=== PATIENT | male | born 1950 | race Caucasian/White ===

== ENCOUNTER 2018-09-01 19:12 | Emergency (ER) | payer OTHER, MEDICARE ==
--- NOTE | 2018-09-01 21:35 | ER Document Report ---
ED Medical Screen (RME) - General Chief Complaint: Post Surgical Bleeding Stated Complaint: BACK PAIN Time Seen by Provider: 09/01/18 21:32 Primary Care Provider: JACKIE VILCHIS [Primary Care Provider] - Follow up as needed Mode of Arrival: Ambulatory Information source: Patient Notes: PT REPORTS RECENT SURGERY NOW HAS HOLE IN HIS BACK. HAD BACK FUSION SURGERY AT [facility] I have greeted and performed a rapid initial assessment of this patient. A comprehensive ED assessment and evaluation of the patient, analysis of test results and completion of the medical decision making process will be conducted by additional ED providers. TRAVEL OUTSIDE OF THE [place] IN LAST 30 DAYS: No - Related Data Allergies/Adverse Reactions: hydroxyzine [From Vistaril] Allergy (Verified 05/27/18 09:17) meperidine [From Demerol] Allergy (Verified 05/27/18 09:17) Past Medical History - Past Medical History Cardiac Medical History: Reports: Hx Hypercholesterolemia, Hx Hypertension Pulmonary Medical History: Reports: Hx COPD Renal/ Medical History: Denies: Hx Peritoneal Dialysis Past Surgical History: Reports: Other - Back surgery. - Immunizations Hx Diphtheria, Pertussis, Tetanus Vaccination: Yes Physical Exam - Vital signs Vitals: Temp Pulse Resp BP Pulse Ox 98.9 F 80 15 157/83 H 97 09/01/18 19:21 09/01/18 19:21 09/01/18 19:21 09/01/18 19:21 09/01/18 19:21 Course - Vital Signs Vital signs: Temp Pulse Resp BP Pulse Ox 98.4 F 56 L 18 145/73 H 99 09/02/18 01:09 09/02/18 01:09 09/02/18 01:09 09/02/18 01:09 09/02/18 01:09 - Laboratory Result Diagrams: 09/02/18 00:12 Laboratory results interpreted by me: 09/02/18 00:12 Hgb 13.2 L RDW 14.8 H Doctor's Discharge - Discharge Referrals: MAME,JACKIE [Primary Care Provider] - Follow up as needed
[2018-09-02] MEDS ORDERED: OXYCODONE HCL IR 5 MG TABLET PO ONE (00:14)
[2018-09-02 00:22] LABS: ABSOLUTE BASOPHILS # (AUTO) 0.1 10^3/uL (0.0-0.2); ABSOLUTE EOSINOPHILS # (AUTO) 0.2 10^3/uL (0.0-0.6); ABSOLUTE LYMPHOCYTES (AUTO) 2.6 10^3/uL (0.5-4.7); ABSOLUTE MONOCYTES (AUTO) 0.5 10^3/uL (0.1-1.4); ABSOLUTE NEUT (AUTO) 3.4 10^3/uL (1.7-8.2); BASOPHILS % (AUTO) 1.1 % (0-2); EOSINOPHILS % (AUTO) 3.3 % (0-6); HEMATOCRIT 38.4 % (37.9-51.0); HEMOGLOBIN 13.2 g/dL (13.5-17.0); LYMPHOCYTES % (AUTO) 38.4 % (13-45); MEAN CORPUSCULAR HEMOGLOBIN 28.6 pg (27.0-33.4); MEAN CORPUSCULAR HGB CONC 34.4 g/dL (32.0-36.0); MEAN CORPUSCULAR VOLUME 83 fl (80-97); MONOCYTES % (AUTO) 7.9 % (3-13); PLATELET COUNT 242 10^3/uL (150-450); RED BLOOD COUNT 4.62 10^6/uL (4.35-5.55); RED CELL DISTRIBUTION WIDTH 14.8 % (11.5-14.0); SEGMENTED NEUTROPHILS % (AUTO) 49.3 % (42-78); TOTAL CELLS COUNTED % (AUTO) 100 %; WHITE BLOOD COUNT 6.9 10^3/uL (4.0-10.5)
--- NOTE | 2018-09-02 02:29 | ER Document Report ---
ED General - General Chief Complaint: Post Surgical Bleeding Stated Complaint: BACK PAIN Time Seen by Provider: 09/01/18 21:32 Primary Care Provider: MAME,JACKIE [Primary Care Provider] - Follow up as needed Mode of Arrival: Ambulatory Notes: Patient is a 68-year-old male who presents with complaint of dehiscence of his surgical wound in his lower back. On August 07 he had lumbar fusion performed by Dr. Juarez at [facility]. Patient says that this several days ago nasal drainage coming from the wound and he had a prescription for an antibiotic called in by his surgeon. Tonight the wound dehisced and he is having a moderate amount of serosanguineous drainage from the wound. He called his neurosurgeon who told to come to the ER for evaluation. He denies any fevers. No other complaints at this time. TRAVEL OUTSIDE OF THE [place] IN LAST 30 DAYS: No - Related Data Allergies/Adverse Reactions: hydroxyzine [From Vistaril] Allergy (Verified 05/27/18 09:17) meperidine [From Demerol] Allergy (Verified 05/27/18 09:17) Past Medical History - General Information source: Patient - Social History Smoking Status: Former Smoker Chew tobacco use (# tins/day): No Frequency of alcohol use: None Drug Abuse: None Family History: Reviewed & Not Pertinent, COPD Patient has suicidal ideation: No Patient has homicidal ideation: No - Past Medical History Cardiac Medical History: Reports: Hx Hypercholesterolemia, Hx Hypertension Pulmonary Medical History: Reports: Hx COPD Renal/ Medical History: Denies: Hx Peritoneal Dialysis Past Surgical History: Reports: Hx Orthopedic Surgery - spinal fusion/rods, Other - Back surgery. - Immunizations Hx Diphtheria, Pertussis, Tetanus Vaccination: Yes Review of Systems - Review of Systems Notes: My Normal Review Basic REVIEW OF SYSTEMS: CONSTITUTIONAL : Denies fever, chills, or sweats. Denies recent illness. RESPIRATORY: Denies cough, cold, or chest congestion. Denies shortness of breath, difficulty breathing, or wheezing. GASTROINTESTINAL: Denies abdominal pain. Denies nausea, vomiting, or diarrhea. GENITOURINARY: Denies difficulty urinating, painful urination, burning, frequency, or blood in urine. MUSCULOSKELETAL: Dehisced surgical wound on lower back. SKIN: Denies rash or skin lesions. NEUROLOGICAL: Denies sensory or motor loss. ALL OTHER SYSTEMS REVIEWED AND NEGATIVE. Physical Exam - Vital signs Vitals: Temp Pulse Resp BP Pulse Ox 98.9 F 80 15 157/83 H 97 09/01/18 19:21 09/01/18 19:21 09/01/18 19:21 09/01/18 19:21 09/01/18 19:21 - Notes Notes: General Appearance: Well nourished, alert, cooperative, no acute distress, mild obvious discomfort. Vitals: reviewed, See vital signs table. Lungs: No wheezing, No rales, No rhonci, No accessory muscle use, good air exchange bilaterally. Heart: Normal rate, Regular rythm, No murmur, no rub Back: Patient surgical wound is partially dehisced. Approximately 5 cm of the wound is completely open. He can see down to the vertebral fascia. He does have serosanguineous drainage from the wound. There is not a significant amount of surrounding redness or signs of cellulitis at this time. There is no purulent drainage at this time. Extremities: Trace edema in bilateral lower extremities. Patient is able to stand with the help of his cane. He is able to bear his weight with his legs on his own power. Skin: warm, dry, appropriate color, no rash Neuro: speech clear, oriented x 3, normal affect, responds appropriately to questions. Sensation intact. Course - Re-evaluation Re-evalutation: 09/02/18 02:[address] Juarez, patient's neurosurgeon, who requested the patient be transferred to [facility] so that he can evaluate the patient to determine whether or not he needs a washout of the wound. I explained the plan to the patient he is agreeable to it. We will arrange transport. Dictation of this chart was performed using voice recognition software; therefore, there may be some unintended grammatical errors. - Vital Signs Vital signs: Temp Pulse Resp BP Pulse Ox 98.4 F 56 L 18 145/73 H 99 09/02/18 01:09 09/02/18 01:09 09/02/18 01:09 09/02/18 01:09 09/02/18 01:09 - Laboratory Result Diagrams: 09/02/18 00:12 Laboratory results interpreted by me: 09/02/18 00:12 Hgb 13.2 L RDW 14.8 H Discharge - Discharge Clinical Impression: Postoperative wound dehiscence Qualifiers: Encounter type: initial encounter Qualified Code(s): T81.31XA - Disruption of external operation (surgical) wound, not elsewhere classified, initial encounter Condition: Stable Disposition: [facility] [[facility]] - Follow up as needed
[2018-09-02 08:03] VITALS: BP 152/85
== END 2018-09-02 08:10 | disposition short-term general hospital (02) ==
LOC: ER 19:12
DX: T81.31XA Disruption of external operation (surgical) wound, not elsewhere classified, initial encounter (principal); M96.830 Postprocedural hemorrhage of a musculoskeletal structure following a musculoskeletal system procedure; X58.XXXA Exposure to other specified factors, initial encounter; Z87.891 Personal history of nicotine dependence; I10 Essential (primary) hypertension; J44.9 Chronic obstructive pulmonary disease, unspecified
CPT/HCPCS: 36415; 85025; 87070; 87075; 87077; 87186; 87205; 99283

== ENCOUNTER → 2019-02-10 | Outpatient (CLI) | payer OTHER, MEDICARE ==
--- NOTE | 2019-02-10 14:07 | RADIOLOGY REPORT (SQ) ---
EXAM DESCRIPTION: MRI LUMBAR SPINE WITHOUT COMPLETED DATE/TIME: 02/10/2019 9:36 am REASON FOR STUDY: (M54.5)LOW BACK PAIN M54.5 LOW BACK PAIN COMPARISON: None. TECHNIQUE: Sagittal and Axial imaging includes T1, T2, STIR and gradient echo sequences. Coronal T2/ HASTE imaging. LIMITATIONS: Metal artifact. Motion. FINDINGS: VISUALIZED UPPER ABDOMEN: Limited evaluation. No acute or suspicious findings suggested. SEGMENTATION: No transitional anatomy. The lowest well-developed disc space is labeled L5-S1. ALIGNMENT: Mild convex right scoliosis. Grade 1 spondylolisthesis L2-3. VERTEBRAE: Height loss L2 approximately 40%. No significant retropulsion. BONE MARROW: Reactive edema inferior endplate L2 to left of midline likely related to spondylosis. N o obvious acute compression fracture. DISC SIGNAL: Desiccation multiple levels. POSTERIOR ELEMENTS: See below. HARDWARE: Posterior fusion L4- 5 and L5-S1. CORD AND CONUS: Normal in size and signal intensity. Conus at the appropriate level. SOFT TISSUES: No aortic aneurysm seen. No bulky retroperitoneal adenopathy or mass. No paraspinal mas s or fluid. L1-L2: Mild neural foraminal narrowing bilaterally. Facet arthropathy. L2-L3: Moderate spinal stenosis status post posterior decompression. Facet arthropathy. Moderate ne ural foraminal narrowing bilaterally. L3-L4: Mild spinal stenosis status post posterior decompression. Facet arthropathy. Moderate neural foraminal narrowing bilaterally. L4-L5: No significant stenosis status post right laminectomy and facetectomy. L5-S1: Disc bulge and facet arthropathy. Mild neural foraminal narrowing bilaterally. LOWER THORACIC: Incompletely imaged. No stenosis seen. SACRUM: Visualized upper sacrum intact. OTHER: No other significant findings. IMPRESSION: Spondylosis and facet arthropathy. Spinal stenosis most advanced at L2-3 status post po sterior decompression multiple levels. Chronic compression fracture L2. TECHNICAL DOCUMENTATION: JOB ID: [id number] [employer]- All Rights Reserved Reading location - IP/workstation name: [email or web address]
== END ==
LOC: RAD 08:31
PROVIDERS: ATTEND Nurse Practitioner Family
DX: M54.5 Low back pain (principal)
CPT/HCPCS: 72148

== ENCOUNTER → 2020-02-21 | Outpatient (CLI) | payer OTHER ==
[2020-02-21 09:55] LABS: ABSOLUTE BASOPHILS # (AUTO) 0.1 10^3/uL (0.0-0.2); ABSOLUTE EOSINOPHILS # (AUTO) 0.1 10^3/uL (0.0-0.6); ABSOLUTE MONOCYTES (AUTO) 0.6 10^3/uL (0.1-1.4); ABSOLUTE NEUT (AUTO) 5.3 10^3/uL (1.7-8.2); BASOPHILS % (AUTO) 1.2 % (0-2); EOSINOPHILS % (AUTO) 1.7 % (0-6); HEMATOCRIT 43.5 % (37.9-51.0); HEMOGLOBIN 14.9 g/dL (13.5-17.0); MEAN CORPUSCULAR HEMOGLOBIN 29.5 pg (27.0-33.4); MEAN CORPUSCULAR HGB CONC 34.2 g/dL (32.0-36.0); MEAN CORPUSCULAR VOLUME 86 fl (80-97); MONOCYTES % (AUTO) 7.1 % (3-13); PLATELET COUNT 185 10^3/uL (150-450); RED BLOOD COUNT 5.05 10^6/uL (4.35-5.55); RED CELL DISTRIBUTION WIDTH 14.9 % (11.5-14.0); TOTAL CELLS COUNTED % (AUTO) 100 %; WHITE BLOOD COUNT 8.1 10^3/uL (4.0-10.5)
[2020-02-21 10:17] LABS: ANION GAP 6 (5-19); BLOOD UREA NITROGEN 30 mg/dL (7-20); CALCIUM 9.7 mg/dL (8.4-10.2); CARBON DIOXIDE 26 mmol/L (22-30); CHLORIDE 106 mmol/L (98-107); GLUCOSE 110 mg/dL (75-110)
[2020-02-21 10:25] LABS: APPEARANCE,URINE CLEAR; BILIRUBIN,URINE NEGATIVE (NEGATIVE); COLOR,URINE YELLOW; GLUCOSE, URINE NEGATIVE (NEGATIVE); KETONES,URINE NEGATIVE (NEGATIVE); LEUKOCYTE ESTERASE,URINE NEGATIVE (NEGATIVE); NITRITE,URINE NEGATIVE (NEGATIVE); PROTEIN,URINE 30 mg/dL (NEGATIVE); URINE SPECIFIC GRAVITY 1.023
--- NOTE | 2020-02-21 11:26 | RADIOLOGY REPORT (SQ) ---
EXAM DESCRIPTION: CHEST PA/LATERAL IMAGES COMPLETED DATE/TIME: 02/21/2020 9:33 am REASON FOR STUDY: PRE-OP COMPARISON: 01/26/2012 EXAM PARAMETERS: NUMBER OF VIEWS: two views TECHNIQUE: Digital Frontal and Lateral radiographic views of the chest acquired. RADIATION DOSE: NA LIMITATIONS: none FINDINGS: LUNGS AND PLEURA: No opacities, masses or pneumothorax. No pleural effusion. Hyperinflati on with flattening of the hemidiaphragm. MEDIASTINUM AND HILAR STRUCTURES: No masses or contour abnormalities. HEART AND VASCULAR STRUCTURES: Heart normal size. No evidence for failure. BONES: No acute findings. HARDWARE: Cardiac pacer with leads overlying right atrium and right ventricle. OTHER: No other significant finding. IMPRESSION: No evidence of acute cardiopulmonary process. TECHNICAL DOCUMENTATION: JOB ID: [id number] 2010 [employer]- All Rights Reserved Reading location - IP/workstation name: [email or web address]
--- NOTE | 2020-02-21 13:47 | EKG REPORT ---
SEVERITY:- ABNORMAL ECG - ATRIAL-PACED COMPLEXES RIGHT BUNDLE BRANCH BLOCK : Confirmed by: Chente Corral MD 21-Feb-2020 13:47:13
== END ==
LOC: OD 09:03
PROVIDERS: ATTEND Orthopaedic Surgery
DX: Z01.810 Encounter for preprocedural cardiovascular examination (principal); Z01.811 Encounter for preprocedural respiratory examination; Z01.812 Encounter for preprocedural laboratory examination; M17.11 Unilateral primary osteoarthritis, right knee
CPT/HCPCS: 36415; 71046; 80048; 81001; 83036; 85025; 93005; 93010

== ENCOUNTER 2020-03-17 06:44 | Inpatient (IN) | payer OTHER, MEDICARE ==
[~2020-03-17 06:44] MED LIST: BUPIVACAINE INJ/PF LIPOSOME/PF 266 MG/20 ML SDV INJ PRN; CEFAZOLIN 1 GM/D5W RTU 1 GM/50 ML RTUPB IV ONE; CEFAZOLIN INJ 1 GM VIAL IV PRN; IBUPROFEN 800 MG in NORMAL SALINE 250 ML IV PRN; OXYCODONE HCL SR 10 MG TABLET PO ONE; OXYCODONE HCL SR 10 MG TABLET PO PRN; PANTOPRAZOLE SODIUM 20 MG TABLET.DR PO ONE; PANTOPRAZOLE SODIUM 20 MG TABLET.DR PO PRN; PHENYLEPHRINE HCL INJ/PF 10 MG/1 ML SDV ONE; VANCOMYCIN HCL 1,000 MG in DEXTROSE 5%-WATER 250 ML IV PRN
[2020-03-17] MEDS ORDERED: ONDANSETRON HCL INJ/PF 4 MG/2 ML SDV ONE (07:24)
[2020-03-17] MEDS ORDERED: MIDAZOLAM 2 MG/2 ML INJ ONE (07:24)
[2020-03-17] MEDS ORDERED: TRANEXAMIC ACID INJ/PF 1,000 MG/10 ML SDV ONE (07:24)
[2020-03-17] MEDS ORDERED: FENTANYL CITRATE INJ/PF 100 MCG/2 ML AMPUL ONE (07:24)
[2020-03-17] MEDS ORDERED: PROPOFOL INJ 200 MG/20 ML VIAL IV ONE (07:25)
[2020-03-17] MEDS ORDERED: BUPIVACAINE HCL 0.25% /EPINEPHRINE INJ/PF 30 ML SDV ONE (08:05)
[2020-03-17] MEDS ORDERED: HYDROMORPHONE HCL INJ/PF 2 MG/ML AMPULE ONE (08:37)
[2020-03-17] MEDS ORDERED: ROPIVACAINE HCL 0.5% INJ/PF (5 MG/1 ML) 30 ML SDV ONE (09:09)
[2020-03-17] MEDS ORDERED: PROMETHAZINE HCL INJ 25 MG/1 ML VIAL IV PRN (09:16)
[2020-03-17] MEDS ORDERED: MORPHINE SULFATE 10 MG/ML INJ IV PRN (09:16)
[2020-03-17] MEDS ORDERED: DIPHENHYDRAMINE HCL 50 MG/ML VIAL IV PRN ×2 (09:16→09:54)
[2020-03-17] MEDS ORDERED: FENTANYL CITRATE INJ/PF 100 MCG/2 ML AMPUL IV PRN ×3 (09:16)
[2020-03-17] MEDS ORDERED: (PENDING PHARMACY ID) (Sildenafil Citrate [Viagra] 100 MG) PO PRN (09:53)
--- NOTE | 2020-03-17 09:53 | Operative Report ---
Operative Report DATE OF SURGERY: 03/17/20 PREOPERATIVE DIAGNOSIS: Right knee arthritis OPERATION: Right knee arthroplasty SURGEON: JERRELL DOMINGUEZ ANESTHESIA: Spinal TISSUE REMOVED OR ALTERED: Bone to pathology ESTIMATED BLOOD LOSS: 75 PROCEDURE: Implants used: Femur: Marshall triathlon size 8 femur Tibia: 7 tibia Tibial liner: 9 mm CS insert Patella: 40 mm oval patella Procedure with the patient supine on the operating table the right the limb is prepped and draped in a sterile fashion. The limb was elevated for exsanguination and the tourniquet inflated to 280 torr. A standard midline median parapatellar approach the knee is taken. Access is gained to the femoral canal through the intercondylar notch. Intramedullary alignment instrumentation used to resect 10 mm of distal femur in 5 of valgus. Sizing guide indicated a size 8 femur. Appropriate cutting jig is then used to fashion anterior posterior and chamfer cuts. A trial reduction femurs performed and this is judged to be adequate. Attention was next turned to the tibia. Using an extra medullary alignment system 11 millimeters was resected off the lateral tibial plateau because of the medial tibial plateau defect. This is sized to a size Greg tibia. A trial reduction was now performed with a 8 femur and a 7 tibia using a 9 millimeters spacer. It is full extension and central patellofemoral tracking. The articular surface the patella was next resected using an oscillating saw. All trial implants were removed. Polymethylmethacrylate is mixed and used to cement the above implants in place. On adequate curing the cement excess cement was removed the tourniquet was deflated hemostasis obtained the wound is then closed in layers using interrupted Vicryl followed by shanon. A sterile compressive dressing was applied and the patient returned to recovery room in satisfactory condition.
[2020-03-17] MEDS ORDERED: ONDANSETRON 4 MG TAB.RAPDIS PO PRN (09:54)
[2020-03-17] MEDS ORDERED: ZOLPIDEM TARTRATE 5 MG TABLET PO PRN (09:54)
[2020-03-17] MEDS ORDERED: RINGERS SOLUTION,LACTATED 1,000 ML IV PRN (09:54)
[2020-03-17] MEDS ORDERED: ONDANSETRON HCL INJ/PF 4 MG/2 ML SDV IV PRN (09:54)
[2020-03-17] MEDS ORDERED: ACETAMINOPHEN 325 MG TABLET PO PRN (09:54)
[2020-03-17] MEDS ORDERED: MAG HYDROX/AL HYDROX/SIMETH SUSP 30 ML UDCUP PO PRN (09:54)
[2020-03-17] MEDS ORDERED: (PENDING PHARMACY ID) (Diltiazem Hcl [Diltiazem 12hr Er] 120 MG) PO SCH (10:00)
[2020-03-17] MEDS ORDERED: (PENDING PHARMACY ID) (Budesonide/Formoterol Fumarate 1 PUFF) IH SCH (10:00)
[2020-03-17] MEDS ORDERED: TRANEXAMIC ACID INJ/PF 1,000 MG/10 ML SDV IV ONE (10:02)
[2020-03-17] MEDS ORDERED: DEXTROSE 40% GEL 15 GM TUBE X 2 PO PRN (11:00)
[2020-03-17] MEDS ORDERED: DEXTROSE 40% GEL 15 GM TUBE PO PRN (11:00)
[2020-03-17] MEDS ORDERED: DEXTROSE 50%-WATER SYRINGE 25 GM/50 ML DOSE IV PRN (11:00)
[2020-03-17] MEDS ORDERED: GLUCAGON,HUMAN RECOMB 1 MG INJ IM PRN (11:00)
[2020-03-17] MEDS ORDERED: DEXTROSE 50%-WATER SYRINGE 12.5 GM/25 ML DOSE IV PRN (11:00)
--- NOTE | 2020-03-17 11:29 | RADIOLOGY REPORT (SQ) ---
EXAM DESCRIPTION: KNEE RIGHT 2 VIEWS IMAGES COMPLETED DATE/TIME: 03/17/2020 10:06 am REASON FOR STUDY: Post OP -Long Cassette in PACU M17.11 UNILATERAL PRIMARY OSTEOARTHRITIS, RIGHT KN EE COMPARISON: Bilateral knee radiographs, 01/10/2020 NUMBER OF VIEWS: Four views. TECHNIQUE: AP and cross-table lateral radiographic images acquired of the right knee. LIMITATIONS: None. FINDINGS: MINERALIZATION: Normal. BONES: There is a new right knee arthroplasty with components in good alignment. No evidence of hard avendano complication. JOINT: Expected postoperative changes in the knee joint. SOFT TISSUES: Expected postoperative changes in the soft tissues. OTHER: No other significant finding. IMPRESSION: Status post right knee arthroplasty. No evidence of hardware complication. TECHNICAL DOCUMENTATION: JOB ID: [id number] 2010 [employer]- All Rights Reserved Reading location - IP/workstation name: [email or web address]
[2020-03-17] MEDS: INSULIN LISPRO 100 UNIT/ML 3 ML VIAL SUBCUT SCH ×3 (12:39→21:50)
[2020-03-17] MEDS: OXYCODONE HCL IR 5 MG TABLET PO PRN ×2 (13:27→19:30)
[2020-03-17] MEDS: IBUPROFEN 800 MG in NORMAL SALINE 250 ML IV SCH ×2 (14:21→21:45)
[2020-03-17] MEDS: OXYCODONE HCL SR 10 MG TABLET PO SCH (17:09)
[2020-03-17] MEDS ORDERED: SENNOSIDES/DOCUSATE 8.6-50 MG 1 EACH TABLET PO SCH (18:00)
[2020-03-17] MEDS ORDERED: PREGABALIN 75 MG CAPSULE PO SCH (22:00)
[2020-03-17] MEDS ORDERED: ATORVASTATIN CALCIUM 80 MG TABLET PO SCH (22:00)
[2020-03-17] MEDS ORDERED: (PENDING PHARMACY ID) (Rosuvastatin Calcium [Rosuvastatin Calcium] 40 MG) PO SCH (22:00)
[2020-03-17] MEDS ORDERED: TERAZOSIN HCL 4 MG PO SCH (22:00)
[2020-03-17] MEDS ORDERED: VANCOMYCIN HCL 1,000 MG in DEXTROSE 5%-WATER 250 ML IV ONE (22:00)
[2020-03-17] MEDS ORDERED: DOXAZOSIN MESYLATE 4 MG TABLET PO SCH (22:00)
[2020-03-18 04:57] LABS: HEMATOCRIT 33.2 % (37.9-51.0); HEMOGLOBIN 11.7 g/dL (13.5-17.0); MEAN CORPUSCULAR HEMOGLOBIN 30.1 pg (27.0-33.4); MEAN CORPUSCULAR HGB CONC 35.4 g/dL (32.0-36.0); MEAN CORPUSCULAR VOLUME 85 fl (80-97); PLATELET COUNT 134 10^3/uL (150-450); RED BLOOD COUNT 3.91 10^6/uL (4.35-5.55); RED CELL DISTRIBUTION WIDTH 14.4 % (11.5-14.0); WHITE BLOOD COUNT 7.6 10^3/uL (4.0-10.5)
[2020-03-18 05:12] LABS: BLOOD UREA NITROGEN 19 mg/dL (7-20); CALCIUM 8.6 mg/dL (8.4-10.2); CARBON DIOXIDE 29 mmol/L (22-30); GLUCOSE 138 mg/dL (75-110); POTASSIUM 4.3 mmol/L (3.6-5.0)
[2020-03-18] MEDS: OXYCODONE HCL SR 10 MG TABLET PO SCH (05:26)
[2020-03-18] MEDS: IBUPROFEN 800 MG in NORMAL SALINE 250 ML IV SCH (05:26)
[2020-03-18 05:30] LABS: CHLORIDE 103 mmol/L (98-107)
[2020-03-18 05:35] LABS: ANION GAP 5 (5-19)
[2020-03-18] MEDS ORDERED: PANTOPRAZOLE SODIUM 40 MG TABLET.DR PO SCH (06:00)
--- NOTE | 2020-03-18 07:45 | PDOC DISCHARGE SUMMARY ---
Impression - Admit/DC Date/PCP Admission Date/Primary Care Provider: 03/17/20 06:[facility] Discharge Date: 03/18/20 - Discharge Diagnosis (1) Arthritis of right knee Is this a current diagnosis for this admission?: Yes - Additional Information Referrals: JERRELL DOMINGUEZ MD [ACTIVE STAFF] - 04/01/20 8:15 am Home Medications: [place]rington-3 Fatty Acids/Fish Oil [Fish Oil 1,000 mg Capsule] 4,000 mg PO BID 05/27/18 Rosuvastatin Calcium 40 mg PO QHS 05/27/18 Terazosin HCl 4 mg PO QHS 05/27/18 Metformin HCl 500 mg PO BID 03/14/20 Budesonide/Formoterol Fumarate [Symbicort Hfa 80-4.5 Mcg Inhaler 6.9 gm] 2 puff IH BID 03/17/20 Cholecalciferol (Vitamin D3) [Vitamin D3] 25 mcg PO DAILY 03/17/20 Diltiazem HCl [Diltiazem 12Hr ER] 120 mg PO DAILY 03/17/20 Duloxetine HCl [Cymbalta] 60 mg PO QAM 03/17/20 Naproxen [Naprosyn] 500 mg PO BID PRN 03/17/20 Oxycodone HCl [Oxy-Ir 5 mg Tablet] 5 mg PO QID 03/17/20 History of Present Illiness History of Present Illness: 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 Continues to have discomfort in his right knee. At that point decision was made to proceed with right total knee arthroplasty after failed conservative management. Hospital Course Hospital Course: Patient underwent right total knee arthroplasty on 03/17/2020. Patient tolerated procedure well. On postop day 1 patient's pain was controlled. Had no issues overnight. Denies chest pain, shortness of breath. To begin physical therapy on postop day #0 on postop day #1 which he tolerated well. At that point decision was made for discharge to home on 03/18/2020 Physical Exam Vital Signs: Temp Pulse Resp BP Pulse Ox 99.1 F 61 16 130/67 H 93 03/17/20 23:48 03/17/20 23:48 03/17/20 23:48 03/17/20 23:48 03/17/20 23:48 Intake & Output 03/17/20 03/18/20 03/19/20 06:59 06:59 06:59 Intake Total 3796 Output Total 2855 Balance 941 Weight 99.3 kg General appearance: PRESENT: no acute distress, well-developed, well-nourished Head exam: PRESENT: atraumatic, normocephalic Eye exam: PRESENT: conjunctiva pink, EOMI, PERRLA. ABSENT: scleral icterus Ear exam: PRESENT: normal external ear exam Mouth exam: PRESENT: moist, tongue midline Neck exam: ABSENT: carotid bruit, JVD, lymphadenopathy, thyromegaly Respiratory exam: PRESENT: clear to auscultation portillo. ABSENT: rales, rhonchi, wheezes Cardiovascular exam: PRESENT: RRR. ABSENT: diastolic murmur, rubs, systolic murmur Pulses: PRESENT: normal dorsalis pedis pul Vascular exam: PRESENT: normal capillary refill GI/Abdominal exam: PRESENT: normal bowel sounds, soft. ABSENT: distended, guarding, mass, organolmegaly, rebound, tenderness Rectal exam: PRESENT: deferred Extremities exam: PRESENT: full ROM. ABSENT: calf tenderness, clubbing, pedal edema Musculoskeletal exam: PRESENT: other - Right knee: Dressing clean/dry/intact no erythema or drainage. Moderate thigh swelling without change, intact plantarflexion/dorsiflexion. No sensory deficits. No calf tenderness. Neurological exam: PRESENT: alert, awake, oriented to person, oriented to place, oriented to time, oriented to situation, CN II-XII grossly intact. ABSENT: motor sensory deficit Psychiatric exam: PRESENT: appropriate affect, normal mood. ABSENT: homicidal ideation, suicidal ideation Skin exam: PRESENT: dry, intact, warm. ABSENT: cyanosis, rash Results Laboratory Results: WBC 7.6 10^3/uL (4.0-10.5) 03/18/20 03:54 RBC 3.91 10^6/uL (4.35-5.55) L 03/18/20 03:54 Hgb 11.7 g/dL (13.5-17.0) L 03/18/20 03:54 Hct 33.2 % (37.9-51.0) L 03/18/20 03:54 MCV 85 fl (80-97) 03/18/20 03:54 MCH 30.1 pg (27.0-33.4) 03/18/20 03:54 MCHC 35.4 g/dL (32.0-36.0) 03/18/20 03:54 RDW 14.4 % (11.5-14.0) H 03/18/20 03:54 Plt Count 134 10^3/uL (150-450) L 03/18/20 03:54 Sodium 137.2 mmol/L (137-145) 03/18/20 03:54 Potassium 4.3 mmol/L (3.6-5.0) 03/18/20 03:54 Chloride 103 mmol/L (98-107) 03/18/20 03:54 Carbon Dioxide 29 mmol/L (22-30) 03/18/20 03:54 Anion Gap 5 (5-19) 03/18/20 03:54 BUN 19 mg/dL (7-20) 03/18/20 03:54 Creatinine 1.04 mg/dL (0.52-1.25) 03/18/20 03:54 Est GFR ( Amer) > 60 (>60) 03/18/20 03:54 Est GFR (MDRD) Non-Af > 60 (>60) 03/18/20 03:54 Glucose 138 mg/dL (75-110) H 03/18/20 03:54 POC Glucose 151 mg/dL (70-110) H 03/18/20 06:01 Calcium 8.6 mg/dL (8.4-10.2) 03/18/20 03:54 COVID-19 Source See comment 03/13/20 10:30 COVID-19 ([facility]UCAS) Not Detected (Not Detect) 03/13/20 10:30 Impressions: Knee X-Ray 03/17/20 09:56 IMPRESSION: Status post right knee arthroplasty. No evidence of hardware complication. Plan Health Concerns: Patient discharged on 03/18/2020. Aspirin for DVT prophylaxis. Will progress with outpatient physical therapy on discharge. Follow-up in the office in 2 weeks for recheck. Stroke Is this a Stroke Patient?: No Acute Heart Failure Is this a Heart Failure Patient?: No
[2020-03-18] MEDS: OXYCODONE HCL IR 5 MG TABLET PO PRN (07:55)
[2020-03-18] MEDS: INSULIN LISPRO 100 UNIT/ML 3 ML VIAL SUBCUT SCH (07:57)
[2020-03-18] MEDS ORDERED: PRENATAL VITAMIN W DHA CAPSULE PO SCH (10:00)
[2020-03-18] MEDS ORDERED: ASPIRIN 81 MG TABLET, ENT COATED PO SCH (10:00)
[2020-03-18] MEDS ORDERED: FLUTICASONE/VILANTEROL 100-25 MCG/DOSE IH SCH (10:00)
[2020-03-18] MEDS ORDERED: DILTIAZEM HCL 120 MG CAP.SR.24H PO SCH (10:00)
[2020-03-18 10:33] VITALS: BP 156/91
== END 2020-03-18 10:51 | disposition home or self-care (01) | DRG 470 ==
LOC: INOR 06:44 → 4N 11:20
PROVIDERS: ADMIT Orthopaedic Surgery; ATTEND Orthopaedic Surgery
PROC: 0SRC0J9 Replacement of Right Knee Joint with Synthetic Substitute, Cemented, Open Approach (ICD-10-PCS; principal; 2020-03-17 08:45)
DX: M17.11 Unilateral primary osteoarthritis, right knee (principal); I45.10 Unspecified right bundle-branch block; J44.9 Chronic obstructive pulmonary disease, unspecified; E78.2 Mixed hyperlipidemia; F17.210 Nicotine dependence, cigarettes, uncomplicated; Z96.652 Presence of left artificial knee joint; Z79.84 Long term (current) use of oral hypoglycemic drugs; Z79.891 Long term (current) use of opiate analgesic; Z79.51 Long term (current) use of inhaled steroids; Z79.899 Other long term (current) drug therapy; Z20.828 Contact with and (suspected) exposure to other viral communicable diseases; Z95.0 Presence of cardiac pacemaker
CPT/HCPCS: 01402; 36415; 80048; 82962; 85027; 87635; 88305; 88311; 94799; C1713; C1776; C9803; J0690; J1170; J1741; J1815; J2250; J2370; J2405; J2704; J2795; J3010; J3370; J3490; J7050; J7060